=== PATIENT | female | born 1995 | race Caucasian/White ===

== ENCOUNTER 2016-06-23 21:52 | Emergency (ER) | payer OTHER ==
[~2016-06-23] VITALS: Ht 162.6 cm; Wt 63.5 kg
[~2016-06-23 21:52] MED LIST: APRI 0.15 MG-0.1 TAB PO; FLEXERIL10 MG PO; MOTRIN600 MG PO; NEXPLANON68 MG; VICODIN5-300 PO
[2016-06-23 21:56] VITALS: BP 136/81
--- NOTE | 2016-06-23 22:42 | ED HEADACHE COMPLAINT ---
History of Present Illness General Chief Complaint: Headache Stated Complaint: MIGRAINE X 1 WEEK Source: patient Exam Limitations: no limitations Vital Signs & Intake/Output Vital Signs & Intake/Output Vital Signs Date Time Temp Pulse Resp B/P Pulse O2 O2 Flow FiO2 Ox Delivery Rate 06/23 2156 97.4 70 20 136/81 100 Room Air ED Intake and Output 06/24 0000 06/23 1200 Intake Total Output Total Balance Patient 140 lb Weight Allergies Coded Allergies: NO KNOWN ALLERGIES (06/23/16) Reconcile Medications Butalb/Acetaminophen/Caffeine (Fioricet 50-300-40 MG Capsule) 50 MG-300 MG-40 MG CAPSULE 1 TAB PO TID PRN MIGRAINE CYCLOBENZAPRINE HCL (Flexeril) 10 MG TABLET 1 TAB PO TID PRN SPASM Avoid operating motor vehicle or heavy machinery Desogestrel/Ethinyl Estradio (Apri 0.15 MG-0.03 MG) 1 TAB TAB 1 TAB PO DAILY CONTROL (Reported) Etonogestrel (Nexplanon) 68 MG IMPLANT CONTROL (Reported) HYDROCODONE/ACETAMINOPHEN (Hydrocodon-Acetaminophen 5-325) 5 MG-325 MG TABLET 1 TAB PO Q6 PRN PAIN Ibuprofen (Motrin) 600 MG TAB 1 TAB PO Q6 PRN PAIN Ketorolac Tromethamine 10 MG TABLET 1 TAB PO TID PRN PAIN RECEIVED im IN THE er Sumatriptan Succinate (Imitrex) 50 MG TABLET 1 TAB PO AD PRN MIGRAINE TAKE FOR MIGRAINE RELIEF, IF NO IMPROVEMENT IN 1 HOUR, REPEAT DO NOT EXCEED TWO TABS IN ONE DAY Triage Note: TRIAGE: PT TO ER C/C MIGRAINE HEADACHE X 1 WK. TRIED ADVIL, TRIED DRINKING MORE WATER, TRIED BOTH DECREASING AND INCREASING CAFFEINE. STATES VISION WAS INITIALLY BLURRY AND NOW FEELS LIKE HER VISION IS "LAGGING. LIKE WATCHING A BAD MOVIE WHEN THEY MOVE THE CAMERA TOO FAST". +N/-V. Triage Nurses Notes Reviewed? yes Onset: Gradual Duration: constant Timing: recent history Severity Numbers: 5 Head Injury Location: temporal : No Patient currently breastfeeds: No HPI: Patient is a 21-year-old female with a past medical history of migraine headaches in which she presents with a one-week history of migraines which patient has had episodes of blurred vision nausea without emesis photophobia and sensitivity to loud noises. Patient has been trying ibuprofen with no relief of symptoms. Patient denies any acute onset or thunderclap headache or worse headache of life. Denies any fever chills neck pain neck stiffness. Patient is able tolerate by mouth. Patient does not have an established neurologist. (SHIKHA KENNEY) Past History Travel History Traveled to [place] past 21 day No Medical History Any Pertinent Medical History? see below for history Neurological: NONE EENT: NONE Cardiovascular: syncope Respiratory: NONE Gastrointestinal: NONE Hepatic: NONE Renal: NONE Musculoskeletal: NONE Psychiatric: NONE Endocrine: NONE Blood Disorders: NONE Cancer(s): NONE PROTECTIVE SIGNAL REPAIRER/Reproductive: NONE Other Medical Hx: MIGRAINE Surgical History Surgical History: non-contributory Psychosocial History What is your primary language Polish Tobacco Use: Quit >30 days ago ETOH Use: occasional use Illicit Drug Use: denies illicit drug use Family History Hx Contributory? No (SHIKHA KENNEY) Review of Systems Review of Systems Constitutional: Reports: no symptoms. Eyes: Reports: see HPI. Ears, Nose, Throat, Mouth: Reports: no symptoms. Respiratory: Reports: no symptoms. Cardiovascular: Reports: no symptoms. Gastrointestinal/Abdominal: Reports: see HPI, nausea. Denies: abdominal pain. Genitourinary: Reports: no symptoms. Musculoskeletal: Reports: no symptoms. Skin: Reports: no symptoms. Neurological/Psychological: Reports: see HPI, headache. Hematologic/Endocrine: Reports: no symptoms. Endocrine: Reports: no symptoms. Immunologic/Allergic: Reports: no symptoms. All Other Systems: Reviewed and Negative (SHIKHA KENNEY) Physical Exam Physical Exam General Appearance: no apparent distress, alert, comfortable Cranial Nerves: normal hearing, normal speech, PERRL Comments: Well-developed well-nourished person in no acute distress HEENT: Normal EENT exam, extraocular motion intact, no nystagmus. Pupils equally round and reactive to light and accommodation. Nose is atraumatic. External auditory canal and Tympanic membranes clear. Pharynx normal. No swelling or edema. Neck: Supple, no lymphadenopathy, normal range of motion without pain or tenderness Back: Nontender, no CVA tenderness. Cardiovascular: Regular rate and rhythms no murmurs rubs or gallops, normal JVP Respiratory: Chest nontender. No respiratory distress.breath sounds clear to auscultation bilaterally Abdomen: Soft, nontender nondistended, no appreciable organomegaly. Normal bowel sounds. No ascites Extremity: No edema, no calf tenderness to palpation, normal and equal pulses. Neuro: Alert oriented x3, motor sensory normal, cranial nerves II through XII grossly intact. Negative Romberg negative cerebellar testing Skin: No appreciable rash on exposed skin, skin is warm and dry. Psych: Mood and affect is normal, memory and judgment is normal. Core Measures Severe Sepsis Present: No Septic Shock Present: No (SHIKHA KENNEY) Progress Differential Diagnosis: carotid dissection, cav sinus thromb, cluster VILLA, encephalitis, IC mass/tumor, intracranial Hem., meningitis, migraine VILLA, musculoskeletal pain, post LP headache, sinusitis, SSS thrombosis, subarach. Hem., tension VILLA, temporal arteritis, TMJ syndrome, viral cephalgia Plan of Care: Current Medications Sig/Elvia Start time Last Medication Dose Stop Time Status Admin Ketorolac 30 MG ONCE ONE 06/23 2244 UNVr Tromethamine 06/23 2245 (Toradol) Patient currently looks well no apparent distress and has no concerns of meningitis or subarachnoid hemorrhage at this time. Patient was given neurology referral for follow-up. Patient was able tolerate by mouth on discharge. Patient had unremarkable physical exam findings at this time patient does not warrant CT scan of head. Idiopathic intracranial hypertension is of my differential however is low suspicion (SHIKHA KENNEY) Departure Departure Disposition: HOME OR SELF CARE Condition: Stable Clinical Impression Primary Impression: Migraine Referrals: JEB TEIXEIRA,PAYAL HENSLEY MD,VALERIO Benito (PCP/Family) Additional Instructions: As discussed begin the prescription OF ketorolac for headache relief. Begin the prescription of Imitrex for breakthrough headache relief and the prescription of Fioricet if no improvement of migraines. Tomorrow please follow up and establish a neurologist doctor JEB for further evaluation treatment. PRESCRIPTIONS are waiting at [facility] pharmacy. If symptoms worsen return to emergency room Departure Forms: Customer Survey General Discharge Information Prescriptions: Current Visit Scripts Ketorolac Tromethamine 1 TAB PO TID PRN PAIN #15 TAB RECEIVED im IN THE er Sumatriptan Succinate (Imitrex) 1 TAB PO AD PRN MIGRAINE #9 TAB TAKE FOR MIGRAINE RELIEF, IF NO IMPROVEMENT IN 1 HOUR, REPEAT DO NOT EXCEED TWO TABS IN ONE DAY Butalb/Acetaminophen/Caffeine (Fioricet 50-300-40 MG Capsule) 1 TAB PO TID PRN MIGRAINE #15 TAB (SHIKHA KENNEY) PA/NETWORK CONTROL OPERATORS SUPERVISOR Co-Sign Statement Statement: ED Attending supervision documentation- [] I saw and evaluated the patient. I have also reviewed all the pertinent lab results and diagnostic results. I agree with the findings and the plan of care as documented in the PA's/NETWORK CONTROL OPERATORS SUPERVISOR's documentation. x I have reviewed the ED Record and agree with the PA's/NETWORK CONTROL OPERATORS SUPERVISOR's documentation. [] Additions or exceptions (if any) to the PAs/NETWORK CONTROL OPERATORS SUPERVISOR's note and plan are summarized below: [] (MAGNO TEIXEIRA,ARIEL)
[2016-06-23] MEDS ORDERED: FIORICET 50-301 EACH PO (22:48)
[2016-06-23] MEDS ORDERED: IMITREX50 M1 PO (22:48)
[2016-06-23] MEDS ORDERED: KETOROLAC TROME10 M1 PO (22:48)
== END 2016-06-23 23:06 ==
LOC: ERH 21:52
DX: G43.909 Migraine, unspecified, not intractable, without status migrainosus (principal)
CPT/HCPCS: 96372; J1885